=== PATIENT | male | born 1950 | race African-American/Black ===

== ENCOUNTER 2018-02-20 09:52 | Observation (INO) | payer OTHER ==
[~2018-02-20] VITALS: Ht 172.7 cm; Wt 69.9 kg
--- NOTE | ~2018-02-20 | EKG ---
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: : 1950 Requested By: Donald Roque Order Number: [id number] MD: Morgan Diaz Measurements Intervals [place] Rate: 90 P: 50 HI: 134 QRS: -16 QRSD: 81 T: -28 QT: 363 QTc: 444 Interpretive Statements Sinus rhythm Probable left atrial enlargement Inferior infarct, age indeterminate Abnrm T, consider ischemia, lateral lds Baseline wander in lead(s) V6 No previous ECG available for comparison Electronically Signed On 02-20-2018 16:42:01 [employer] by Morgan Diaz [email or web address] <ELECTRONICALLY SIGNED> By: Morgan Diaz MD, [facility] 02/20/18 1642 1036 103 Morgan Diaz MD, [facility] /EPI
--- NOTE | ~2018-02-20 | EKG ---
[address] [place] [address] ELECTROCARDIOGRAM REPORT Name: RUSSELL SOSA Room #: 360-[facility].R.#: [id number] Admission: 02/20/18 Attend Phys: Benedicto Moscoso MD Discharge: Date of : 54 Report #: [id number] THIS REPORT FOR: //name// [facility] Test Date: 2018-02-20 Test Time: 12:50:42 Pat Name: RUSSELL SOSA Department: Room: 360 P Gender: M Service Person: MOSHE : 1950 Requested By: Benedicto Moscoso Order Number: [id number] MD: Morgan Diaz Measurements Intervals [place] Rate: 83 P: 51 NC: 132 QRS: -20 QRSD: 81 T: 28 QT: 367 QTc: 432 Interpretive Statements Sinus rhythm Inferior infarct, old Lateral leads are also involved No previous ECG available for comparison Electronically Signed On 02-20-2018 16:46:57 [employer] by Morgan Diaz [email or web address] <ELECTRONICALLY SIGNED> By: Morgan Diaz MD, [facility] 02/20/18 1646 1250 1250 Morgan Diaz MD, [facility] /EPI
[2018-02-20 09:53] VITALS: BP 130/82
[2018-02-20] MEDS ORDERED: COZAAR 25 MG TA25 M1 PO (10:26)
[2018-02-20] MEDS ORDERED: HYDROCHLOROTHIA25 M2 PO (10:26)
[2018-02-20] MEDS ORDERED: ATORVASTATIN CA40 MG PO (10:26)
[2018-02-20] MEDS ORDERED: AMLODIPINE BESY10 MG PO (10:26)
[2018-02-20 10:39] LABS: ABSOLUTE NEUTROPHILS 3.3 thou/uL (1.4-8.2); EOSINOPHILS 1.7 % (0.0-3.0); HEMOGLOBIN 16.1 gm/dL (14.0-18.0); LYMPHOCYTES 22.1 % (24.0-44.0); MCH 28.7 pg (26.0-34.0); MCHC 34.3 g/dL (28.0-37.0); MCV 83.6 fL (80.0-100.0); MONOCYTES 10.3 % (1.0-8.0); PLATELET COUNT 267 thou/uL (150-400); POLYS 64.9 % (36.0-66.0); RBC 5.62 mil/uL (4.50-6.00); RDW 12.9 % (10.5-14.5); WBC 5.1 thou/uL (4.0-11.0)
[2018-02-20 10:45] LABS: CALCIUM 10.2 mg/dL (8.5-10.1); CREATININE 1.1 mg/dL (0.7-1.3)
[2018-02-20 10:55] LABS: ALBUMIN 4.2 g/dL (3.4-5.0); PHOSPHORUS 3.8 mg/dL (2.5-4.9); TOTAL BILIRUBIN 0.8 mg/dL (<0.1-1.0); TOTAL PROTEIN 8.6 g/dL (6.4-8.2); TROPONIN-I 0.09 ng/mL (<0.06)
[2018-02-20 11:54] VITALS: BP 137/88
[2018-02-20 12:27] VITALS: BP 133/89
[2018-02-20 15:33] VITALS: BP 130/85
[2018-02-20] MEDS ORDERED: LEVEMIR SUBQ (17:32)
[2018-02-20] MEDS ORDERED: NOVOLOG100 UNIT/1 SUBQ (17:33)
[2018-02-20 18:25] VITALS: BP 130/85
== END 2018-02-20 18:52 | disposition home or self-care (01) ==
LOC: ER 09:52 → EROBS 11:10 → 3W 12:13 → ENTRNSPT 18:38 → 3W 18:52
PROVIDERS: Emergency Medicine
DX: M62.81 Muscle weakness (generalized) (principal); R79.89 Other specified abnormal findings of blood chemistry; I10 Essential (primary) hypertension; E87.5 Hyperkalemia; E11.65 Type 2 diabetes mellitus with hyperglycemia; Z79.4 Long term (current) use of insulin; Z79.899 Other long term (current) drug therapy; Z91.013 Allergy to seafood

== ENCOUNTER 2018-06-01 12:22 | Emergency (ER) | payer OTHER ==
[~2018-06-01] VITALS: Ht 172.7 cm; Wt 72.6 kg
[~2018-06-01 12:22] MED LIST: AMLODIPINE BESY10 MG PO; ATORVASTATIN CA40 MG PO; COZAAR 25 MG TA25 M1 PO; HYDROCHLOROTHIA25 M2 PO; LEVEMIR SUBQ; NOVOLOG100 UNIT/1 SUBQ
[2018-06-01 13:01] LABS: ABSOLUTE NEUTROPHILS 3.3 thou/uL (1.4-8.2); BASOPHILS 0.7 % (0.0-2.0); EOSINOPHILS 0.2 % (0.0-3.0); HEMATOCRIT 46.8 % (42.0-52.0); LYMPHOCYTES 18.2 % (24.0-44.0); MCH 28.6 pg (26.0-34.0); MCHC 34.2 g/dL (28.0-37.0); MCV 83.5 fL (80.0-100.0); MONOCYTES 9.5 % (1.0-8.0); PLATELET COUNT 226 thou/uL (150-400); POLYS 71.4 % (36.0-66.0); RBC 5.61 mil/uL (4.50-6.00); RDW 13.6 % (10.5-14.5); WBC 4.7 thou/uL (4.0-11.0)
[2018-06-01 13:09] LABS: CALCIUM 9.9 mg/dL (8.5-10.1); CREATININE 1.3 mg/dL (0.7-1.3); POTASSIUM 3.9 mmol/L (3.5-5.1)
[2018-06-01 13:15] LABS: ALBUMIN 4.2 g/dL (3.4-5.0); TOTAL BILIRUBIN 0.7 mg/dL (<0.1-1.0); TOTAL PROTEIN 8.4 g/dL (6.4-8.2)
[2018-06-01 15:35] LABS: URINE BILIRUBIN NEGATIVE (Negative); URINE BLOOD TRACE (Negative); URINE CLARITY CLEAR; URINE COLOR YELLOW; URINE GLUCOSE-RANDOM* 3+ (Negative); URINE KETONES NEGATIVE (Negative); URINE LEUKOCYTES-REFLEX NEGATIVE (Negative); URINE NITRITE-REFLEX NEGATIVE (Negative); URINE PROTEIN (DIPSTICK) TRACE (Negative); URINE SPECIFIC GRAVITY 1.015 (1.005-1.035); URINE UROBILINOGEN 0.2 E.U./dl (0.2-1.0)
[2018-06-01] MEDS ORDERED: FLOMAX0.4 MG PO (16:59)
[2018-06-01 17:18] VITALS: BP 151/94
== END 2018-06-01 17:10 | disposition home or self-care (01) ==
LOC: ER 12:22
PROVIDERS: Emergency Medicine
DX: R33.9 Retention of urine, unspecified (principal); R11.2 Nausea with vomiting, unspecified; R10.32 Left lower quadrant pain; I10 Essential (primary) hypertension; E11.9 Type 2 diabetes mellitus without complications; Z91.013 Allergy to seafood; Z79.4 Long term (current) use of insulin

== ENCOUNTER 2018-06-03 11:56 | Emergency (ER) | payer OTHER ==
[~2018-06-03] VITALS: Ht 177.8 cm; Wt 74.8 kg
[~2018-06-03 11:56] MED LIST changes: +FLOMAX0.4 MG PO
[2018-06-03 12:54] LABS: URINE BILIRUBIN NEGATIVE (Negative); URINE BLOOD 3+ (Negative); URINE CLARITY CLEAR; URINE COLOR YELLOW; URINE GLUCOSE-RANDOM* 3+ (Negative); URINE KETONES 1+ (Negative); URINE LEUKOCYTES-REFLEX TRACE (Negative); URINE NITRITE-REFLEX NEGATIVE (Negative); URINE PROTEIN (DIPSTICK) TRACE (Negative); URINE UROBILINOGEN 0.2 E.U./dl (0.2-1.0)
[2018-06-03 13:04] LABS: CASTS None Seen /LPF (None Seen); SQUAMOUS 0-3 Few /LPF (0-3)
[2018-06-03 13:05] LABS: BACTERIA-REFLEX None Seen /HPF (None Seen); CRYSTALS None Seen /LPF (None Seen); URINE RBC 3-10 Few /HPF (0-2); URINE WBC-REFLEX 0-5 Rare /HPF (0-5)
[2018-06-03 13:20] VITALS: BP 148/92
== END 2018-06-03 13:45 | disposition home or self-care (01) ==
LOC: ER 11:56
PROVIDERS: Emergency Medicine
DX: R33.9 Retention of urine, unspecified (principal); I10 Essential (primary) hypertension; E11.9 Type 2 diabetes mellitus without complications; Z91.013 Allergy to seafood